=== PATIENT | male | born 1970 | race Caucasian/White ===

== ENCOUNTER 2020-10-13 01:47 | Emergency (ER) | payer OTHER ==
[~2020-10-13] VITALS: Ht 172.7 cm; Wt 78.0 kg
[~2020-10-13 01:47] MED LIST: ATEN25; BUSP5; ERGO400 PO; Lisinopril2.5 MG; OXYACE7.5T PO; TAMS.4ER PO
[2020-10-13 02:41] LABS: BASOPHILS ABSOLUTE AUTO 0.06 K/mm3 (0.00-0.23); BASOPHILS PERCENT AUTO 0 % (0-2); EOSINOPHILS ABSOLUTE AUTO 0.13 K/mm3 (0.00-0.68); EOSINOPHILS PERCENT AUTO 1 % (0-6); Hematocrit 42.3 % (37.0-53.0); Hemoglobin 14.1 g/dL (13.5-17.5); IMMATURE GRAN ABSOLUTE AUTO 0.06 K/mm3 (0.00-0.10); IMMATURE GRAN PERCENT AUTO 0 % (0-1); LYMPHOCYTES ABSOLUTE AUTO 1.97 K/mm3 (0.84-5.20); LYMPHOCYTES PERCENT AUTO 13 % (21-46); MONOCYTES ABSOLUTE AUTO 1.08 K/mm3 (0.16-1.47); MONOCYTES PERCENT AUTO 7 % (4-13); Mean Corpuscular HGB Conc 33.3 g/dL (31.5-36.5); Mean Corpuscular Volume 87 fL (80-100); Mean Platelet Volume 9.4 fL (9.1-12.4); NEUTROPHILS ABSOLUTE AUTO 11.49 K/mm3 (1.96-9.15); NEUTROPHILS PERCENT AUTO 78 % (41-73); Platelet Count 225 K/mm3 (150-400); RDW Standard Deviation 41.3 fL (35.1-46.3); Red Blood Cell Count 4.87 M/mm3 (4.30-5.90); White Blood Cell Count 14.79 K/mm3 (4.00-11.30)
[2020-10-13 02:59] LABS: Alanine Aminotransfer (ALT/SGP 47 U/L (12-78); Albumin, Blood 4.2 g/dL (3.4-5.0); Albumin/Globulin Ratio 1.4 (0.8-1.8); Alk Phos 59 U/L (50-136); Anion Gap 9 mmol/L (6-16); Aspartate Aminotrans (AST/SGOT 26 U/L (12-37); Bilirubin, Total 0.2 mg/dL (0.1-1.0); Blood Urea Nitrogen 18 mg/dL (8-24); CO2, Blood 26 mmol/L (21-32); Calcium, Blood 9.3 mg/dL (8.5-10.1); Chloride, Blood 106 mmol/L (98-108); Globulin, Blood 3.1 g/dL (2.2-4.0); Glomerular Filtration Rate >60 (60-); Glucose, Blood 166 mg/dL (70-99); Potassium, Blood 3.6 mmol/L (3.5-5.5); Sodium, Blood 141 mmol/L (136-145); Total Protein, Blood 7.3 g/dL (6.4-8.2)
[2020-10-13 03:37] LABS: Source, Urine Clean Catch
[2020-10-13 03:39] LABS: Bilirubin, Urine Neg (Neg); Blood, Urine 5+ (Neg); Glucose Qualitative, Urine Neg (Neg); Ketones, Urine 2+ (Neg); Leukocyte Esterase, Urine 1+ (Neg); Nitrite, Urine Neg (Neg); Protein, Urine 2+ (Neg); Specific Gravity, Urine 1.015 (1.003-1.022); Urobilinogen, Urine NORM (Normal)
[2020-10-13 03:44] LABS: Appearance, Urine Hazy (Clear); Color, Urine Yellow (P-Yellow); Red Blood Cells, Urine TNTC /hpf (0-2)
[2020-10-13 03:45] LABS: Amorphous Mod (0-Heavy); Bacteria Mod /hpf; Squamous Epithelial Cells Not Seen /hpf (Few)
[2020-10-13] MEDS ORDERED: CEPH500 PO (04:24)
[2020-10-13] MEDS ORDERED: Flomax0.4 MG PO (04:24)
[2020-10-13] MEDS ORDERED: ONDA4ODT MM (04:43)
[2020-10-13] MEDS ORDERED: Norco 5-325 Ta1 EACH PO (04:43)
== END 2020-10-13 06:00 | disposition home or self-care (01) ==
LOC: ER 01:47
PROVIDERS: Emergency Medicine
DX: N13.6 Pyonephrosis (principal); Z79.899 Other long term (current) drug therapy; Z87.442 Personal history of urinary calculi
CPT/HCPCS: 36415; 74176; 80053; 81001; 83690; 85025; 87086; 96365-59; 96375-59; 99284-25; A9270; J0696; J1170; J1885; J2405; J7030

== ENCOUNTER → 2021-01-05 | Outpatient (CLI) | payer OTHER ==
[~2021-01-05] MED LIST changes: +CEPH500 PO; +Flomax0.4 MG PO; +Norco 5-325 Ta1 EACH PO; +ONDA4ODT MM
[2021-01-19 18:11] LABS: CALCIUM OXALATE 4.01 ratio (0.00-6.00); CALCIUM, URINE 313.5 mg/24 hr (100.0-300.0); CALCIUM, URINE 9.5 mg/dL (Not Estab.); CHLORIDE URINE 185 (110-250); CITRIC ACID (CITRATE) 88 mg/L (Not Estab.); CITRIC ACID(CITRATE) 290 mg/24 hr (320-1240); CREATININE, URINE 1369.5 mg/24 hr (1000.0-2000.0); CREATININE, URINE 41.5 mg/dL (Not Estab.); MAGNESIUM, URINE 3.7 mg/dL (Not Estab.); MONOSODIUM URATE 0.71 ratio (0.00-4.00); OSMOLALITY, URINE 271 (300-900); SODIUM, URINE 191 (58-337); SODIUM, URINE 58 mmol/L (Not Estab.); STRUVITE 0.01 ratio (0.00-1.00); URIC ACID 0.76 ratio (0.00-1.20); URINE VOLUME 3300 mL/24 hr (800-1800); URINE VOLUME (PRESERVATIVE) 3300 mL/24 hr (800-1800)
== END | disposition home or self-care (01) ==
LOC: LAB SHORT 10:00
PROVIDERS: Physician Assistant Medical
DX: N20.0 Calculus of kidney (principal)
CPT/HCPCS: 81003; 82131; 82140; 82340; 82436; 82507; 82570; 83735; 83935; 83945; 84105; 84133; 84300; 84392; 84560